=== PATIENT | male | born 1985 | race Caucasian/White ===

== ENCOUNTER 2018-04-12 06:35 | Emergency (ER) | payer MEDICAID ==
[~2018-04-12] VITALS: Ht 188 cm; Wt 85.1 kg
[~2018-04-12 06:35] MED LIST: HYDR-569 PO
[2018-04-12 06:39] VITALS: BP 123/81
== END 2018-04-12 08:19 | disposition home or self-care (01) ==
LOC: ER 06:35
DX: J02.9 Acute pharyngitis, unspecified (principal); J04.0 Acute laryngitis; F12.90 Cannabis use, unspecified, uncomplicated; Z90.49 Acquired absence of other specified parts of digestive tract; Z88.2 Allergy status to sulfonamides; Z79.899 Other long term (current) drug therapy
CPT/HCPCS: 99281